=== PATIENT | male | born 2005 | race Caucasian/White ===

== ENCOUNTER 2025-04-30 12:31 | Emergency (ER) | payer OTHER ==
[~2025-04-30] VITALS: Ht 182.9 cm; Wt 115.0 kg
[2025-04-30 12:34] VITALS: O2SAT 100
[2025-04-30] MEDS ORDERED: DEXAMETHASONE 10 MG/ML VIAL PO ONE (15:30)
[2025-04-30] MEDS ORDERED: IBUP-2029 MT (16:27)
[2025-04-30] MEDS ORDERED: BENZ1LOZ73 MT (16:27)
[2025-04-30 16:43] VITALS: BP 144/80; PULSE 92; RESP 18; TEMP 36.7; O2SAT 98
== END 2025-04-30 16:45 | disposition home or self-care (01) ==
LOC: ER 12:31
DX: J06.9 Acute upper respiratory infection, unspecified (principal); J02.9 Acute pharyngitis, unspecified; Z79.899 Other long term (current) drug therapy
CPT/HCPCS: 99283; 71045; 93005; J1100

== ENCOUNTER 2025-06-03 19:03 | Emergency (ER) | payer SELFPAY ==
[~2025-06-03] VITALS: Ht 182.9 cm; Wt 121.0 kg
[~2025-06-03 19:03] MED LIST: BENZ1LOZ73 MT; IBUP-1455 MT
[2025-06-03 19:09] VITALS: O2SAT 97
[2025-06-03 22:33] VITALS: BP 117/56; PULSE 76; RESP 16; TEMP 36.7; O2SAT 76
== END 2025-06-03 22:36 | disposition home or self-care (01) ==
LOC: ER 19:03
DX: R06.02 Shortness of breath (principal); R11.0 Nausea; F12.90 Cannabis use, unspecified, uncomplicated
CPT/HCPCS: 71045; 93005; 99283